=== PATIENT | male | born 1970 | race Caucasian/White ===

== ENCOUNTER 2018-01-25 20:24 | Emergency (ER) | payer SELFPAY ==
[2018-01-25] MEDS ORDERED: NA CHLORIDE 0.9% 1,000 ML ONE (21:13)
[2018-01-25] MEDS ORDERED: LORazepam 2 MG/ML VIAL ONE (21:13)
[2018-01-25 21:33] LABS: Absolute Lymphocytes (CBC) 2.7 K/uL (0.7-4.9); Absolute Monocytes 0.6 K/uL (0.1-1.3); Absolute Neutrophil 4.2 K/uL (1.8-8.0); Basophils % 0.9 % (0-1.3); Eosinophils % 3.5 % (0-4.4); Hematocrit 45.5 % (39.6-49.0); Lymphocytes % 34.7 % (15.3-44.8); MCH 31.3 pg (27.0-35.0); MCV 90.4 fL (80-100); MPV 8.7 fL (7.6-11.3); Monocytes % 7.5 % (3.3-12.3); RBC Red Blood Cell Count 5.04 M/uL (4.33-5.43)
[2018-01-25 21:34] LABS: Protime INR 0.97
[2018-01-25] MEDS ORDERED: BENZTROPINE 2 MG/2 ML VIAL ONE (21:40)
[2018-01-25] MEDS ORDERED: HALOPERIDOL LACT 5 MG/ML INJ ONE (21:41)
[2018-01-25 21:42] LABS: Urine Blood NEGATIVE (NEG); Urine Glucose NEGATIVE (NEG); Urine Protein NEGATIVE (NEG); Urine Specific Gravity <1.005 (1.005-1.030); Urine pH 5.5 (5.0-7.0)
[2018-01-25 21:47] LABS: Barbiturates NEGATIVE (NEGATIVE); Benzodiazepines NEGATIVE (NEGATIVE); Cocaine NEGATIVE (NEGATIVE); METHAMPHETAM NEGATIVE (NEGATIVE); Methadone NEGATIVE (NEGATIVE); Opiates NEGATIVE (NEGATIVE); Phencyclidine NEGATIVE (NEGATIVE); THC Cannibis POSITIVE (NEGATIVE)
[2018-01-25 22:07] LABS: ALT/SGPT 50 U/L (12-78); AST/SGOT 27 U/L (15-37); Albumin 4.2 g/dL (3.4-5.0); Alkaline Phosphatase 80 U/L (45-117); BUN Blood Urea Nitrogen 5 mg/dL (7-18); Bicarbonate 28 mmol/L (21-32); Bilirubin Direct 0.1 mg/dL (0-0.2); Bilirubin Total 0.3 mg/dL (0.2-1.0); Glucose Level 94 mg/dL (74-106); Potassium 3.9 mmol/L (3.5-5.1); Protein, Total 8.2 g/dL (6.4-8.2); Sodium Level 139 mmol/L (136-145)
--- NOTE | 2018-01-26 10:04 | EDPHYS ---
Physician Documentation [facility] Name: Josiah Cole III Age: 47 yrs Sex: Male : 1970 Arrival Date: 01/25/2018 Time: 20:30 Bed 16 Private MD: ED Physician Panchito Majano HPI: 01/25 21:27 This 47 yrs old Male presents to ER via EMS with complaints of Suicidal jr8 Ideation, Depression. 21:27 Onset: The symptoms/episode began/occurred acutely, today. Associated signs and jr8 symptoms: The patient has no apparent associated signs or symptoms. Severity of symptoms: At their worst the symptoms were moderate in the emergency department the symptoms are unchanged. It is unknown whether or not the patient has had similar symptoms in the past. The patient has not recently seen a physician. Patient stated that it feels as if his heart was ripped out tonight. Stated that his girlfriend betrayed him and that he is very angry. Stated that police was called on him which is why he is here now. Does not want to be here and does not feel suicidal currently. Stated that every man feels like they want to when there heart is broken . Historical: - Allergies: 21:48 No Known Allergies; tl2 - Home Meds: 21:48 None [Active]; tl2 - PMHx: 21:48 None; tl2 - PSHx: 21:48 None; tl2 - Immunization history:: Adult Immunizations up to date. - Social history:: Smoking status: Patient/guardian denies using tobacco. - Ebola Screening: : No symptoms or risks identified at this time. ROS: 21:38 Eyes: Negative for injury, pain, redness, and discharge, ENT: Negative for injury, jr8 pain, and discharge, Neck: Negative for injury, pain, and swelling, Cardiovascular: Negative for chest pain, palpitations, and edema, Respiratory: Negative for shortness of breath, cough, wheezing, and pleuritic chest pain, Abdomen/GI: Negative for abdominal pain, nausea, vomiting, diarrhea, and constipation, Back: Negative for injury and pain, MS/Extremity: Negative for injury and deformity, Skin: Negative for injury, rash, and discoloration, Neuro: Negative for headache, weakness, numbness, tingling, and seizure. 21:38 Psych: Positive for anxiety, depression, Negative for suicide gesture, suicidal ideation. Exam: 21:38 Eyes: Pupils equal round and reactive to light, extra-ocular motions intact. Lids and jr8 lashes normal. Conjunctiva and sclera are non-icteric and not injected. Cornea within normal limits. Periorbital areas with no swelling, redness, or edema. ENT: Nares patent. No nasal discharge, no septal abnormalities noted. Tympanic membranes are normal and external auditory canals are clear. Oropharynx with no redness, swelling, or masses, exudates, or evidence of obstruction, uvula midline. Mucous membranes moist. Neck: Trachea midline, no thyromegaly or masses palpated, and no cervical lymphadenopathy. Supple, full range of motion without nuchal rigidity, or vertebral point tenderness. No Meningismus. Cardiovascular: Regular rate and rhythm with a normal S1 and S2. No gallops, murmurs, or rubs. Normal PMI, no JVD. No pulse deficits. Respiratory: Lungs have equal breath sounds bilaterally, clear to auscultation and percussion. No rales, rhonchi or wheezes noted. No increased work of breathing, no retractions or nasal flaring. Abdomen/GI: Soft, non-tender, with normal bowel sounds. No distension or tympany. No guarding or rebound. No evidence of tenderness throughout. Back: No spinal tenderness. No costovertebral tenderness. Full range of motion. Skin: Warm, dry with normal turgor. Normal color with no rashes, no lesions, and no evidence of cellulitis. MS/ Extremity: Pulses equal, no cyanosis. Neurovascular intact. Full, normal range of motion. Neuro: Awake and alert, GCS 15, oriented to person, place, time, and situation. Cranial nerves II-XII grossly intact. Motor strength 5/5 in all extremities. Sensory grossly intact. Cerebellar exam normal. Normal gait. 21:38 Psych: Behavior/mood is anxious, angry, Affect is animated, Oriented to person, place, time, Patient has no thoughts/intents to harm self or others. Judgement / Insight is impaired. Memory is normal. Delusions/hallucinations are not present. Vital Signs: 20:42 BP 136 / 92; Pulse 100; Resp 18; Temp 98.6; Pulse Ox 99% ; Weight 74.84 kg; Height 5 tl2 ft. 9 in. (175.26 cm); Pain 0/10; 01/26 00:00 BP 130 / 91; Pulse 96; Resp 18; Pulse Ox 99% on R/A; tl2 06:38 BP 135 / 78; Pulse 74; Resp 18; Pulse Ox 97% on R/A; tl2 09:45 BP 132 / 76; Pulse 72; Resp 18; Temp 97.8; Pulse Ox 99% on R/A; ph 01/25 20:42 Body Mass Index 24.37 (74.84 kg, 175.26 cm) tl2 MDM: 01/25 20:33 Patient medically screened. jr8 21:38 ED course: Patient smells of alcohol and is acting inebriated. Very angry when talking jr8 to him. Will give sedative to calm him down so his temper does not escalate. Will reevaluate patient after he is more calm and of the right mind . 21:41 Data reviewed: vital signs, nurses notes, lab test result(s). Data interpreted: Pulse jr8 oximetry: on room air is 98 %. Interpretation: normal. Transition of care: After a detail discussion of the patient's case, care is transferred to [facility]. 01/26 10:02 ED course: Pt now sober, more alert, normal vitals, denies suicidal or homicidal rn ideation to me and nurse, asked repeatedly and in different ways, says his heart is broken, but does not want to harm himself or others. . 01/25 20:50 Order name: Urine Dipstick--Ancillary (enter results); Complete Time: 21:46 mt 01/25 21:01 Order name: Acetaminophen; Complete Time: 22:19 jr8 01/25 21:01 Order name: Basic Metabolic Panel; Complete Time: 22:19 8 01/25 21:01 Order name: CBC with Diff; Complete Time: 21:41 8 01/25 21:01 Order name: ETOH Level; Complete Time: 22:19 8 01/25 21:01 Order name: Hepatic Function; Complete Time: 22:19 8 01/25 21:01 Order name: PT-INR; Complete Time: 21:41 8 01/25 21:01 Order name: Salicylate; Complete Time: 22:19 8 01/25 21:01 Order name: Urine Drug Screen; Complete Time: 22:19 [facility] 01/26 02:17 Order name: ETOH Level; Complete Time: 03:25 01/26 03:25 Interpretation: ETOH 58; Reviewed. cp 01/25 21:01 Order name: IV Saline Lock; Complete Time: 21:29 [facility] 01/25 21:01 Order name: Labs collected and sent; Complete Time: 21:29 [facility] 01/25 21:01 Order name: Urine Dipstick-Ancillary (obtain specimen); Complete Time: 21:07 [facility] 01/26 07:21 Order name: Diet Finger Food; Complete Time: 07:22 ph Administered Medications: 01/25 21:14 Drug: NS 0.9% 1000 ml Route: IV; Rate: 1000 ml; Site: left antecubital; tl1 21:21 Drug: Ativan 1 mg Route: IVP; Infused Over: 2 mins; Site: left antecubital; tl1 22:00 Follow up: Response: No adverse reaction; No change in condition tl2 21:43 Drug: HALdol 5 mg Route: IVP; Site: left antecubital; tl2 22:30 Follow up: Response: No adverse reaction; Marked relief of symptoms tl2 21:43 Drug: COgentin 1 mg Route: IVP; Site: left antecubital; tl2 22:30 Follow up: Response: No adverse reaction; Marked relief of symptoms tl2 Disposition: 01/26/18 10:03 Discharged to Home. Impression: Acute stress reaction, Alcohol use, unspecified with intoxication. - Condition is Stable. - Discharge Instructions: Alcohol Intoxication, Stress and Stress Management. - Medication Reconciliation Form, Thank You Letter, Antibiotic Education, Prescription Opioid Use form. - Follow up: Private Physician; When: As needed; Reason: Recheck today's complaints, Re-evaluation by your physician. - Problem is new. - Symptoms have improved. Addendum: 01/31/2018 09:49 Co-signature as Attending Physician, Panchito Majano MD available for consultation at p s1 all times . Signatures: Dispatcher [employer] EDMS Yariel Pelaez MD MD rn Roszak, Josh, PA PA jr8 Parul Hutchinson RN RN tl1 Bonita You RN RN ph Page, Corey, PA PA cp Knox, Taylor, RN RN tl2 Panchito Majano MD MD ps1 Corrections: (The following items were deleted from the chart) 01/25 21:39 21:27 Patient stated that it feels as if his heart was ripped out tonight. Stated that jr8 his girlfriend betrayed him and that he is very angry. Stated that police was called on him which is why he is here now. Does not want to be here and does not feel suicidal currently . jr8 01/26 10:17 10:03 01/26/2018 10:03 Discharged to Home. Impression: Acute stress reaction; Alcohol ph use, unspecified with intoxication. Condition is Stable. Forms are Medication Reconciliation Form, Thank You Letter, Antibiotic Education, Prescription Opioid Use. Follow up: Private Physician; When: As needed; Reason: Recheck today's complaints, Re-evaluation by your physician. Problem is new. Symptoms have improved. rn
--- NOTE | 2018-01-26 10:04 | ER ---
Nurse's Notes [facility] Name: Josiah Cole III Age: 47 yrs Sex: Male : 1970 Arrival Date: 01/25/2018 Time: 20:30 Bed 16 Private MD: Diagnosis: Acute stress reaction;Alcohol use, unspecified with intoxication Presentation: 01/25 20:49 Presenting complaint: Patient states: He is very depressed because he was broken up tl2 with today and is anxious and feels like he's not thinking right. Pt is irritable in discharge and states "there's no one strong enough to keep me from walking out". Transition of care: patient was not received from another setting of care. Onset of symptoms was January 25, 2018. Risk Assessment: Do you want to hurt yourself or someone else? Patient reports desire/thoughts of hurting themselves or someone else. Provider notified. Initial Sepsis Screen: Does the patient meet any 2 criteria? No. Patient's initial sepsis screen is negative. Does the patient have a suspected source of infection? No. Patient's initial sepsis screen is negative. Care prior to arrival: None. 20:49 Method Of Arrival: EMS: [facility] tl2 20:49 Acuity: PETER 2 tl2 Triage Assessment: 20:49 General: Appears in no apparent distress. uncomfortable, Behavior is agitated, anxious. tl2 Pain: Denies pain. Neuro: Level of Consciousness is awake, alert, obeys commands, Oriented to person, place, time, situation. Cardiovascular: Denies chest pain. Respiratory: Airway is patent Respiratory effort is even, unlabored, Respiratory pattern is regular, symmetrical. GI: No signs and/or symptoms were reported involving the gastrointestinal system. : No signs and/or symptoms were reported regarding the genitourinary system. Derm: Skin is pink, warm \\T\\ dry. Historical: - Allergies: 21:48 No Known Allergies; tl2 - Home Meds: 21:48 None [Active]; tl2 - PMHx: 21:48 None; tl2 - PSHx: 21:48 None; tl2 - Immunization history:: Adult Immunizations up to date. - Social history:: Smoking status: Patient/guardian denies using tobacco. - Ebola Screening: : No symptoms or risks identified at this time. Screenin:53 Abuse screen: Denies threats or abuse. Nutritional screening: No deficits noted. tl2 Tuberculosis screening: No symptoms or risk factors identified. Fall Risk None identified. Assessment: 20:42 General: see triage assessment. tl2 21:45 Reassessment: Patient appears in no apparent distress at this time. Patient and/or tl2 family updated on plan of care and expected duration. Pain level reassessed. Patient is alert, oriented x 3, equal unlabored respirations, skin warm/dry/pink. Pt becoming more cooperative, food provided. Pt resting quietly. 22:09 Reassessment: Pt appears to be sleeping, RR even and unlabored. tl2 01/26 03:00 Reassessment: Patient appears in no apparent distress at this time. Patient and/or tl2 family updated on plan of care and expected duration. Pain level reassessed. Pt continues to remain asleep, RR even and unlabored. Awaiting repeat ETOH. 06:28 Reassessment: Pt ambulatory to restroom, States he feels a little better. Awaiting tl2 reevaluation by MD. 07:19 Reassessment: Patient appears in no apparent distress at this time. Pt asleep w/ equal ph unlabored respirations. 08:24 Reassessment: Patient appears in no apparent distress at this time. No changes from ph previously documented assessment. 09:45 Reassessment: Patient appears in no apparent distress at this time. Patient and/or ph family updated on plan of care and expected duration. Pain level reassessed. Patient is alert, oriented x 3, equal unlabored respirations, skin warm/dry/pink. Pt awake and eating breakfast, tolerating well. 10:05 Reassessment: Patient appears in no apparent distress at this time. Patient and/or ph family updated on plan of care and expected duration. Pain level reassessed. Patient is alert, oriented x 3, equal unlabored respirations, skin warm/dry/pink. Pt awake, Dr Pelaez and RN at bedside to speak w/ pt, pt denies suicidal or homicidal thoughts at this time, states, " My girl and I broke up and I wasn't thinking straight last night, I feel like I am okay to go home though, I just need to get on touch with my brother because I'm not from around here.". Psych: 01/25 20:45 Safety Checks: Personal items have been removed. Door is open. No visitors are present tl2 at this time. 20:47 Subjective: Patient's mood is angry, Delusions are denied, Hallucinations are denied tl2 Having thoughts of suicide. Denies suicidal plan. Objective: Patient is aggressive, irritable, Speech is normal, Affect is appropriate. Interventions: Removed personal items and placed in bag. Patient placed in hospital gown. Searched person for dangerous items. Urine collected and sent for urine drug test. Suicide Risk Assessment: Sad Person Scale: Sex of patient: Male: Score 1 point. Age of patient: Score 0 point if patient falls outside of specified age parameters. Depression: Score 1 point if signs of depression are present. Previous Attempt: Score 0 point if patient has not previously attempted suicide. Substance Abuse: Score 1 point if patient abuses alcohol or drugs. Rational Thinking: Score 0 point if patient has rational thinking. Social Support: Score 1 point if social support is lacking and/or unavailable. Organized Plan: Score 0 if patient did not have an organized plan in place. Relationship: Score 1 point if patient is , , , or for a single male Chronic Sickness: Score 0 point if patient does not have a chronic illness, debilitating, or severe disorder. TOTAL POINTS: If total points are 5-6, proposed clinical action is to strongly consider hospitalization, depending upon confidence in the follow-up arrangement. Implement suicide precautions. Patient uses. 20:53 Commitment: Patient will be a voluntary commitment. tl2 21:00 Safety Checks: Personal items have been removed. Door is open. No visitors are present tl2 at this time. 21:15 Safety Checks: Personal items have been removed. Door is open. No visitors are present tl2 at this time. Safety Checks: Personal items have been removed. Door is open. No visitors are present at this time. 21:45 Safety Checks: Personal items have been removed. Door is open. No visitors are present tl2 at this time. 22:00 Safety Checks: Personal items have been removed. Door is open. No visitors are present tl2 at this time. 22:15 Safety Checks: Personal items have been removed. Door is open. No visitors are present tl2 at this time. 22:30 Safety Checks: Personal items have been removed. Door is open. No visitors are present tl2 at this time. 22:45 Safety Checks: Personal items have been removed. Door is open. No visitors are present tl2 at this time. 23:00 Safety Checks: Personal items have been removed. Door is open. No visitors are present tl2 at this time. 23:15 Safety Checks: Personal items have been removed. Door is open. No visitors are present tl2 at this time. 23:30 Safety Checks: Personal items have been removed. Door is open. No visitors are present tl2 at this time. 23:45 Safety Checks: Personal items have been removed. Door is open. No visitors are present tl2 at this time. 01/26 00:00 Safety Checks: Personal items have been removed. Door is open. No visitors are present tl2 at this time. 00:15 Safety Checks: Personal items have been removed. Door is open. No visitors are present tl2 at this time. 00:30 Safety Checks: Personal items have been removed. Door is open. No visitors are present tl2 at this time. 00:45 Safety Checks: Personal items have been removed. Door is open. No visitors are present tl2 at this time. 01:00 Safety Checks: Personal items have been removed. Door is open. No visitors are present tl2 at this time. 01:15 Safety Checks: Personal items have been removed. Door is open. No visitors are present tl2 at this time. 01:30 Safety Checks: Personal items have been removed. Door is open. No visitors are present tl2 at this time. 01:45 Safety Checks: Personal items have been removed. Door is open. No visitors are present tl2 at this time. 02:00 Safety Checks: Personal items have been removed. Door is open. No visitors are present tl2 at this time. 02:15 Safety Checks: Personal items have been removed. Door is open. No visitors are present tl2 at this time. 02:30 Safety Checks: Personal items have been removed. Door is open. No visitors are present tl2 at this time. 02:45 Safety Checks: Personal items have been removed. Door is open. No visitors are present tl2 at this time. 03:00 Safety Checks: Personal items have been removed. Door is open. No visitors are present tl2 at this time. 03:15 Safety Checks: Personal items have been removed. Door is open. No visitors are present tl2 at this time. 03:30 Safety Checks: Personal items have been removed. Door is open. No visitors are present tl2 at this time. 03:45 Safety Checks: Personal items have been removed. Door is open. No visitors are present tl2 at this time. 04:00 Safety Checks: Personal items have been removed. Door is open. No visitors are present tl2 at this time. 04:15 Safety Checks: Personal items have been removed. Door is open. No visitors are present tl2 at this time. 04:30 Safety Checks: Personal items have been removed. Door is open. No visitors are present tl2 at this time. 04:45 Safety Checks: Personal items have been removed. Door is open. No visitors are present tl2 at this time. 05:00 Safety Checks: Personal items have been removed. Door is open. No visitors are present tl2 at this time. 05:15 Safety Checks: Personal items have been removed. Door is open. No visitors are present tl2 at this time. 05:30 Safety Checks: Personal items have been removed. Door is open. No visitors are present tl2 at this time. 05:45 Safety Checks: Personal items have been removed. Door is open. No visitors are present tl2 at this time. 06:00 Safety Checks: Personal items have been removed. Door is open. No visitors are present tl2 at this time. 06:15 Safety Checks: Personal items have been removed. Door is open. No visitors are present tl2 at this time. 06:30 Safety Checks: Personal items have been removed. Door is open. No visitors are present tl1 at this time. 06:45 Safety Checks: Personal items have been removed. Door is open. No visitors are present tl1 at this time. 07:00 Safety Checks: Personal items have been removed. Door is open. No visitors are present tl1 at this time. Vital Signs: 01/25 20:42 BP 136 / 92; Pulse 100; Resp 18; Temp 98.6; Pulse Ox 99% ; Weight 74.84 kg; Height 5 tl2 ft. 9 in. (175.26 cm); Pain 0/10; 01/26 00:00 BP 130 / 91; Pulse 96; Resp 18; Pulse Ox 99% on R/A; tl2 06:38 BP 135 / 78; Pulse 74; Resp 18; Pulse Ox 97% on R/A; tl2 09:45 BP 132 / 76; Pulse 72; Resp 18; Temp 97.8; Pulse Ox 99% on R/A; ph 01/25 20:42 Body Mass Index 24.37 (74.84 kg, 175.26 cm) tl2 ED Course: 01/25 20:30 Patient arrived in ED. tl2 20:33 Bernie Johnson, GRACIA is Primary Nurse. tl2 20:33 Nawaf Umaña PA is PHCP. jr8 20:33 Panchito Maajno MD is Attending Physician. jr8 20:49 Arm band placed on right wrist. tl2 20:51 Triage completed. tl2 20:54 Patient has correct armband on for positive identification. Bed in low position. Call tl2 light in reach. Side rails up X 1. 21:24 No provider procedures requiring assistance completed. Inserted saline lock: 18 gauge tl1 in left antecubital area, using aseptic technique. Blood collected. 21:47 PHCP role handed off by Nawaf Umaña PA cp 21:47 Hay Meade PA is PHCP. cp 01/26 07:15 Appears to be sleeping. Safety Checks: The door is open or patient has been placed in a ph hallway bed/chair. Items have not been removed There are no family/friend visitors at this time. 07:30 Safety Checks: The door is open or patient has been placed in a hallway bed/chair. ph Items have not been removed There are no family/friend visitors at this time. 07:45 Safety Checks: The door is open or patient has been placed in a hallway bed/chair. ph Items have not been removed There are no family/friend visitors at this time. 08:00 Safety Checks: The door is open or patient has been placed in a hallway bed/chair. ph Items have not been removed There are no family/friend visitors at this time. 08:15 Safety Checks: The door is open or patient has been placed in a hallway bed/chair. ph Items have not been removed There are no family/friend visitors at this time. 08:30 Appears to be sleeping. Safety Checks: The door is open or patient has been placed in a ph hallway bed/chair. Items have not been removed There are no family/friend visitors at this time. 08:45 Safety Checks: The door is open or patient has been placed in a hallway bed/chair. ph Items have not been removed There are no family/friend visitors at this time. 09:00 Safety Checks: The door is open or patient has been placed in a hallway bed/chair. ph Items have not been removed There are no family/friend visitors at this time. 09:15 Safety Checks: The door is open or patient has been placed in a hallway bed/chair. ph Items have not been removed There are no family/friend visitors at this time. 09:30 Safety Checks: The door is open or patient has been placed in a hallway bed/chair. ph Items have not been removed There are no family/friend visitors at this time. 09:45 Safety Checks: The door is open or patient has been placed in a hallway bed/chair. ph Items have not been removed There are no family/friend visitors at this time. 10:10 IV discontinued, intact, bleeding controlled, No redness/swelling at site. Pressure ph dressing applied. Administered Medications: 01/25 21:14 Drug: NS 0.9% 1000 ml Route: IV; Rate: 1000 ml; Site: left antecubital; tl1 21:21 Drug: Ativan 1 mg Route: IVP; Infused Over: 2 mins; Site: left antecubital; tl1 22:00 Follow up: Response: No adverse reaction; No change in condition tl2 21:43 Drug: HALdol 5 mg Route: IVP; Site: left antecubital; tl2 22:30 Follow up: Response: No adverse reaction; Marked relief of symptoms tl2 21:43 Drug: COgentin 1 mg Route: IVP; Site: left antecubital; tl2 22:30 Follow up: Response: No adverse reaction; Marked relief of symptoms tl2 Outcome: 01/26 10:03 Discharge ordered by MD. sheldon 10:17 Patient left the ED. ph 10:17 Discharged to home ambulatory, with family. ph 10:17 Condition: improved 10:17 Discharge instructions given to patient, Instructed on discharge instructions, follow up and referral plans. Demonstrated understanding of instructions, follow-up care. Signatures: Yariel Pelaez MD MD rn Roszak, Josh, PA PA jr8 Parul Hutchinson RN RN tl1 Bonita You RN RN ph Hay Meade PA PA cp Knox, Taylor RN RN tl2 Corrections: (The following items were deleted from the chart) 07:15 Safety Checks: Personal items have been removed. The door is open or patient has ph been placed in a hallway bed/chair. There are no family/friend visitors at this time ph 07:30 Safety Checks: Personal items have been removed. The door is open or patient has ph been placed in a hallway bed/chair. There are no family/friend visitors at this time ph 07:45 Safety Checks: Personal items have been removed. The door is open or patient has ph been placed in a hallway bed/chair. There are no family/friend visitors at this time ph 08:00 Safety Checks: Personal items have been removed. The door is open or patient has ph been placed in a hallway bed/chair. There are no family/friend visitors at this time 08:15 Safety Checks: Personal items have been removed. The door is open or patient has ph been placed in a hallway bed/chair. There are no family/friend visitors at this time ph
[2018-01-26 10:24] VITALS: TEMP 98.6
[2018-01-26 10:26] VITALS: BP 135/78; O2SAT 97
== END 2018-01-26 10:17 | disposition home or self-care (01) ==
LOC: ER 20:24
DX: F43.0 Acute stress reaction (principal); F10.129 Alcohol abuse with intoxication, unspecified
CPT/HCPCS: 36415; 80048; 80076; 80307; 80320; 80329; 81003; 85025; 85610; 96374; 96375; 99285; J0515; J1630; J7030